=== PATIENT | female | born 1955 | race Caucasian/White ===

== ENCOUNTER 2023-07-29 13:45 | Outpatient (RCR) | payer MEDICARE, OTHER, BC, SELFPAY | END 2023-11-26 23:59 | disposition home or self-care (01) | PROVIDERS: PCP Surgery; Visit Provider Student in an Organized Health Care Education/Training Program | DX: S14.3XXA Injury of brachial plexus, initial encounter (principal); R53.1 Weakness; Z51.89 Encounter for other specified aftercare | CPT/HCPCS: 97110; 97162 ==